=== PATIENT | male | born 1965 | race Caucasian/White ===

== ENCOUNTER 2016-09-28 10:03 | Observation (INO) ==
[2016-09-28] MEDS ORDERED: 0.9 % Sodium Chloride 500 ML IVC ONE (10:18)
[2016-09-28] MEDS: Nitroglycerin 0.4 MG TAB.SUBL SL ONE ×2 (10:29→10:35)
[2016-09-28 10:31] LABS: Basophils % 0.1 %; Eosinophils # 0.3 K/mcL (0.0-0.6); Eosinophils % 4.5 %; Hemoglobin 15.5 g/dL (12.9-16.9); Immature Granulocytes % 0.3 % (0-4); Lymphocytes # 1.7 K/mcL (0.6-4.6); Mean Corpuscular HGB Conc 34.4 g/dL (31.6-35.5); Mean Corpuscular Hemoglobin 30.6 pg (28.0-33.3); Mean Corpuscular Volume 88.8 fL (83.0-100.0); Mean Platelet Volume 9.6 fL (9.4-12.4); Monocytes # 0.5 K/mcL (0.0-1.3); Monocytes % 7.9 %; Neutrophils # 4.2 K/mcL (1.6-8.9); Platelet Count 213 K/mcL (140-400); Red Blood Count 5.07 M/mcL (4.19-5.50); Red Cell Distribution Width 13.9 % (11.5-14.5); Segmented Neutrophils % 62.2 %
--- NOTE | 2016-09-28 10:35 | Emergency Department Note ---
Disposition Clinical Impression: Chest pain Qualifiers: Ischemic chest pain type: unspecified angina pectoris type Disposition: Still a Patient Condition: Fair Referrals: NO,PCP [Primary Care Provider] - Forms: ED Satisfaction Letter Time of Disposition: 11:04 Chest Pain HPI - General Chief Complaint: ED Chest Pain Stated Complaint: Chest Pain Time Seen by Provider: 09/28/16 10:17 Source: patient Mode of arrival: ambulatory Limitations: no limitations Vital Signs Reviewed: Yes Nursing Notes Reviewed: Yes - History of Present Illness HPI Narrative: She presents to the emergency department with complaints of a 2 day chest pain. He states he seen the lawnmower came in and took 3 or 4 and then today when he awoke him he started experiencing chest pain again, took 4 aspirin at that time. He states that the pain has been persistent. Past medical history significant for the fact that he took himself off Suboxone 5 days ago because of the bad taste and was sleeping in his mouth. Was making him nauseous. States he is on Suboxone for 5 years for opiate addiction. States that he had a VT 17 years ago. At the age of 37. 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 At this time he is still complaining of chest pains that there is no diaphoresis no nausea. Pt complaint: chest pain Onset (ago): day(s) (2) Duration: intermittent, gradually worsening Onset: during rest, during exertion Pain Location: left chest Severity: severe Severity scale (1-10): 10 Quality: tightness, heaviness Pain Radiation: none Improves with: nothing Worsens with: nothing Treatments prior to arrival chest pain: aspirin (Patient states he had taken 4 baby asprin at home. ) - Related Data Home Medications Medication Instructions Recorded Confirmed Albuterol Neb [Proventil Neb] 2.5 mg IH Q4H PRN 09/28/16 09/28/16 Albuterol Sulfate [Albuterol 0 puff IH Q6HR 09/28/16 09/28/16 Inhaler] Amlodipine [Norvasc] 5 mg PO DAILY 09/28/16 09/28/16 Aspirin [Lo-Dose Aspirin EC] 81 mg PO DAILY 09/28/16 09/28/16 Atorvastatin Calcium [Lipitor] 20 mg PO DAILY 09/28/16 09/28/16 Budesonide/Formoterol 160/4.5 2 puff IH BIDR 09/28/16 09/28/16 [Symbicort 160/4.5] Buprenorphine HCl [Subutex] 4 mg SL HS 09/28/16 09/28/16 Buprenorphine HCl [Subutex] 8 mg SL BID 09/28/16 09/28/16 Ibuprofen [Motrin] 800 mg PO Q8HR 09/28/16 09/28/16 Allergies Allergy/AdvReac Type Severity Reaction Status Date / Time Penicillins Allergy Hives Verified 09/28/16 10:04 All systems ED: reviewed and negative except as stated. Constitutional: Denies: fever, chills, weakness, weight change Eyes: Denies: eye pain, eye discharge, vision change ENT ED: Denies: ear pain, throat pain, dental pain, hearing loss, epistaxis, congestion, dysphagia Cardiovascular: Reports: chest pain. Denies: palpitations, dyspnea on exertion , orthopnea, paroxysmal nocturnal dyspnea Respiratory: Denies: cough, dyspnea, wheezes, hemoptysis, stridor Gastrointestinal: Denies: abdominal pain, nausea, vomiting, diarrhea, constipation, hematemesis, melena, hematochezia Musculoskeletal: Denies: back pain, neck pain, arthralgia, myalgia Integumentary: Denies: rash, abrasion, lesions Neurological: Denies: headache, weakness, numbness, paresthesias, confusion, abnormal gait, vertigo Chest Pain PMH - Past Medical History Medical history: Reports: asthma, COPD, hyperlipidemia, hypertension Psychiatric history: Reports: no psych history - Social History Smoking Status: Former smoker Alcohol use: Reports: none Drug use: Reports: marijuana Physical Exam - General Limitations: no limitations General appearance: alert, in no apparent distress - Head Head exam: atraumatic, normocephalic, normal inspection - Eye Eye exam: Present: normal appearance, PERRL, EOMI - ENT ENT exam: normal exam, normal oropharynx, mucous membranes moist - Neck Neck exam: Present: normal inspection, full ROM, trachea midline - Chest Chest inspection: Present: normal inspection, symmetric chest wall rise - Respiratory Respiratory exam: Present: normal lung sounds bilaterally - Cardiovascular Cardiovascular exam: Present: regular rate, normal rhythm, normal heart sounds. Absent: systolic murmur, diastolic murmur, JVD - Abdominal Exam Abdominal exam: Present: soft, Non-Tender, normal bowel sounds. Absent: tenderness, distention, guarding, rebound, rigidity - Extremities Exam Extremities exam: Present: normal inspection, full ROM. Absent: tenderness, pedal edema - Back Exam Back exam: Present: normal inspection, full ROM. Absent: tenderness - Neurological Exam Neurological exam: Present: alert, oriented X3 - Psychiatric Psychiatric exam: Present: normal affect, normal mood - Skin Skin exam: Present: warm, dry, intact, normal color Course Vital Signs Temperature 98.1 F 09/28/16 10:04 Pulse Rate 92 09/28/16 10:04 Respiratory Rate 18 09/28/16 10:04 Blood Pressure 160/90 09/28/16 10:04 O2 Sat by Pulse Oximetry 96 09/28/16 10:04 Temperature 98.1 F 09/28/16 10:04 Pulse Rate 89 09/28/16 10:49 Respiratory Rate 16 09/28/16 10:49 Blood Pressure 126/81 09/28/16 10:49 O2 Sat by Pulse Oximetry 95 09/28/16 10:49 Oxygen Delivery Oxygen Delivery Room Air Chest Pain - Lab Data Result diagrams: 09/28/16 10:25 09/28/16 10:25 Lab Results 09/28/16 09/28/16 09/28/16 Range/Units 10:25 10:25 10:25 WBC 6.7 (4.3-11.1) K/mcL RBC 5.07 (4.19-5.50) M/mcL Hgb 15.5 (12.9-16.9) g/dL Hct 45.0 (37.5-50.1) % MCV 88.8 (83.0-100.0) fL MCH 30.6 (28.0-33.3) pg MCHC 34.4 (31.6-35.5) g/dL RDW 13.9 (11.5-14.5) % Plt Count 213 (140-400) K/mcL MPV 9.6 (9.4-12.4) fL Immature Gran % 0.3 (0-4) % Seg Neutrophils % 62.2 % Lymphocytes % 25.0 % Monocytes % 7.9 % Eosinophils % 4.5 % Basophils % 0.1 % Neutrophils # 4.2 (1.6-8.9) K/mcL Lymphocytes # 1.7 (0.6-4.6) K/mcL Monocytes # 0.5 (0.0-1.3) K/mcL Eosinophils # 0.3 (0.0-0.6) K/mcL Basophils # 0.0 (0.0-0.2) K/mcL PT 11.9 (9.4-12.1) Seconds INR 1.1 APTT 32.2 (26.0-36.0) Seconds Sodium 138 (136-145) mEq/L Potassium 4.1 (3.5-4.5) mEq/L Chloride 108 (98-109) mEq/L Carbon Dioxide 24 (19-29) mEq/L BUN 12 (8-26) mg/dL Creatinine 0.83 (0.72-1.25) mg/dL Est GFR ( Amer) > 60 (> 60) Est GFR (Non-Af Amer) > 60 (> 60) BUN/Creatinine Ratio 14 (6-26) Glucose 73 (70-99) mg/dL Calculated Osmolality 284 (280-300) Calcium 9.1 (8.6-10.8) mg/dL Troponin I (0-0.03) ng/mL 09/28/16 Range/Units 10:25 WBC (4.3-11.1) K/mcL RBC (4.19-5.50) M/mcL Hgb (12.9-16.9) g/dL Hct (37.5-50.1) % MCV (83.0-100.0) fL MCH (28.0-33.3) pg MCHC (31.6-35.5) g/dL RDW (11.5-14.5) % Plt Count (140-400) K/mcL MPV (9.4-12.4) fL Immature Gran % (0-4) % Seg Neutrophils % % Lymphocytes % % Monocytes % % Eosinophils % % Basophils % % Neutrophils # (1.6-8.9) K/mcL Lymphocytes # (0.6-4.6) K/mcL Monocytes # (0.0-1.3) K/mcL Eosinophils # (0.0-0.6) K/mcL Basophils # (0.0-0.2) K/mcL PT (9.4-12.1) Seconds INR APTT (26.0-36.0) Seconds Sodium (136-145) mEq/L Potassium (3.5-4.5) mEq/L Chloride (98-109) mEq/L Carbon Dioxide (19-29) mEq/L BUN (8-26) mg/dL Creatinine (0.72-1.25) mg/dL Est GFR ( Amer) (> 60) Est GFR (Non-Af Amer) (> 60) BUN/Creatinine Ratio (6-26) Glucose (70-99) mg/dL Calculated Osmolality (280-300) Calcium (8.6-10.8) mg/dL Troponin I 0.01 (0-0.03) ng/mL Heart Score - Score History: Moderately Suspicious EKG: Non Specific repolarisation Disturbance Age: 45-65 Risk Factors: Equal/Greater than 3 risk factor or history of atherosclerotic disease Troponin: Less than normal limit HEART Score Total: 5 S.B.A.R. - S.B.A.Radha Situation: Demographics Background: Presenting Complaint, Relevant PMH, Meds, & Allergies Assessment: Vital Signs, Course and respsone to treatment, Patient/Family Expectation, Pertinant Lab Results, Outstanding Labs Recommendation: Recommendation based on pending studies, treatments, or consults S.B.A.RAb Report Given to: Jorge Landers SAbB.AMoses Repor Time: 11:03
[2016-09-28 10:36] LABS: INR 1.1; Prothrombin Time 11.9 Seconds (9.4-12.1)
[2016-09-28 10:38] LABS: Activated Partial Thrombo Time 32.2 Seconds (26.0-36.0)
[2016-09-28 10:42] LABS: BUN/Creatinine Ratio 14 (6-26); Blood Urea Nitrogen 12 mg/dL (8-26); Calcium 9.1 mg/dL (8.6-10.8); Carbon Dioxide 24 mEq/L (19-29); Chloride 108 mEq/L (98-109); Glucose 73 mg/dL (70-99); Osmolality,Calculated 284 (280-300); Potassium 4.1 mEq/L (3.5-4.5); Sodium 138 mEq/L (136-145); eGFR For African Americans > 60 (> 60); eGFR For Non-African Americans > 60 (> 60)
[2016-09-28 11:02] LABS: Bilirubin,Urine Negative (Negative); Blood,Urine Negative (Negative); Clarity,Urine Clear (Clear); Color,Urine Yellow (Yellow); Glucose,Urine (UA) Normal (Normal); Ketones,Urine Negative (Negative); Leukocyte Esterase,Urine Negative (Negative); Nitrite,Urine Negative (Negative); PH,Urine 6.5 pH Units (5.0-8.0); Protein,Urine Negative (Neg-Trace); Specific Gravity,Urine 1.015 (1.010-1.025); Urobilinogen,Urine Normal (Normal)
[2016-09-28 11:03] LABS: Amphetamine Screen,Urine Negative ng/mL (Cutoff=1000); Barbiturate Screen,Urine Negative ng/mL (Cutoff=200); Benzodiazepines Screen,Urine Negative ng/mL (Cutoff=200); Cannabinoid Screen,Urine Positive ng/mL (Cutoff = 50); Cocaine Screen,Urine Negative ng/mL (Cutoff= 300); Opiate Screen,Urine Negative ng/mL (Cutoff=300); Phencyclidine Screen,Urine Negative ng/mL (Cutoff=25)
[2016-09-28] MEDS ORDERED: Aspirin 325 MG TABLET PO ONE (11:33)
[2016-09-28] MEDS ORDERED: *HR* Morphine 2 MG/ML SYRINGE IVP ONE (11:33)
[2016-09-28] MEDS ORDERED: Ondansetron 4 MG/2 ML VIAL IVP ONE (11:33)
--- NOTE | 2016-09-28 11:37 | Emergency Department Note ---
START Narrative - START START: I evaluated the patient with the APC, and spent direct [id number] time with the patient and agree with her findings assessment and plan. The patient has a history of hypertension, hypercholesterolemia, reported NC, and a strong family history of 90 artery disease. The patient is complaining of chest pain associated with exertion. His EKG is abnormal. Based on his risk factors and high heart score I thought it would be appropriate to admit the patient to the hospital. Pain medication was ordered as well as aspirin. The patient has not had a recent heart catheterization or stress test. The patient is currently stable. I discussed the case with the hospitalist on-call who has accepted the patient to his care. Impression: Chest pain Abnormal EKG History of coronary disease Family history of coronary disease History of hypertension History of hypercholesterolemia Marijuana abuse History of COPD Laboratory testing and chest x-ray reviewed.
--- NOTE | 2016-09-28 12:19 | Event Note ---
Date of Encounter: 09/28/16 Time of Encounter: 12:18 Patient seen and examined with nurse practitioner. Without acute coronary syndrome. There is no increasing cardio mediastinal silhouette. Continuous telemetry monitoring. Observation admission.
[2016-09-28] MEDS ORDERED: Naloxone 0.4 MG/ML INJ IVP PRN (12:35)
[2016-09-28] MEDS ORDERED: Acetaminophen 325 MG TABLET PO PRN (12:35)
[2016-09-28] MEDS ORDERED: Ondansetron 4 MG/2 ML VIAL IVP PRN (12:35)
[2016-09-28] MEDS ORDERED: Nitroglycerin 0.4 MG TAB.SUBL SL PRN (12:47)
--- NOTE | 2016-09-28 13:01 | Internal Med History&Physical ---
Date of Encounter: 09/28/16 Time of Encounter: 12:47 Assessment and Plan (1) Chest pain Status: Acute 1 patient's been experiencing chest pain for the past 3 days. Has a history of hypertension hyperlipidemia and smoking as well previous AR? - Psychiatry troponins are negative for continue to cycle cardiac troponins 2 nitroglycerin as needed for chest pain 3 oxygen as needed maintain SPO2 greater than 92% 4 continue his cardiac monitoring 5 cardiac echo 6 NPO after midnight-cardiac stress in a.m. 7 continue aspirin and statin 8 consult cardiology as needed 9 lipid level in am 10 we will obtain a d-dimer to rule out possible PE Qualifiers: Chest pain type: unspecified Qualified Code(s): R07.9 - Chest pain, unspecified Code(s): R07.9 - Chest pain, unspecified (2) HTN (hypertension) Status: Chronic 1 we will continue with home medications Colestid maintain systolic less than 140 2 low sodium diet Qualifiers: Hypertension type: essential hypertension Qualified Code(s): I10 - Essential (primary) hypertension (3) Hyperlipidemia Status: Chronic 1 continue with statin Qualifiers: Hyperlipidemia type: unspecified Qualified Code(s): E78.5 - Hyperlipidemia , unspecified (4) Tobacco abuse Status: Chronic 1 patient has history of tobacco use presently drapes approximately 6 mL's nicotine daily encouraged patient to stop offer patient nicotine patch declined (5) DVT prophylaxis Status: Acute lovenox (6) COPD (chronic obstructive pulmonary disease) Status: Chronic 1 we will continue bronchodilators 2 oxygen as needed Qualifiers: COPD type: emphysema Emphysema type: unspecified Qualified Code(s): J43.9 - Emphysema, unspecified Internal Medicine - H&P: HPI Chief complaint: CP Admitted From: Home Plans for Post Hospital Care: Home History of present illness: Mr. Harris is a 51 year old male past medical hx of HTN hyperlipidemia tobacco abuse, COPD past opiate abuse. Grandmother the patient he will call Sunday with left-sided chest pressure she rated 4 out of 10 radiating to his back shoulder and down his left arm. The pain was constant aspirin did relieve the pain somewhat as well as rest. Exertion aggravated pain. Patient has been experiencing nausea he normally takes Suboxone and has not been able take his medication due to the nausea. Denies any shortness of breath diaphoresis or lightheadedness. Yesterday patient was attempting to push lawnmower when the pain escalated to 10 out of 10, he states that he had to lie down in the grass for approximately 20 minutes into the pain subsided. This a.m. the pain has continued came into the ER for evaluation. Patient denies any fevers chills vomiting or palpitations . Patient states that he does have a past cardiac history,when he was approximately 37 he said he had an AR however did not have any stent placement. Patient states he has not used opioids since 2010 however he does admit to marijuana use. He does not smoke cigarettes however he does use vapor. According to ER records lab work was unremarkable with troponin was 0.01 chest x-ray with no acute process patient was given aspirin nitroglycerin morphine which did relieve his pain. EKG with no ST-T wave abnormalities. He has been admitted for further workup and evaluation. Presently patient complains of left-sided back pain which she rates 4 out of 10. Chest wall is nontender to palpation heart sounds are regular S1-S2 no rubs gallops murmurs or clicks noted. Lungs sounds are clear throughout. She is hemodynamically stable at this time I reviewed this case with Dr. Ramos who agrees with plan. Past Med Surg Social Fam HX - Past Medical History Medical history: asthma, COPD, hyperlipidemia, hypertension Psychiatric history: no psych history - Social History Smoking Status: Former smoker Smokeless Tobacco Status: No Alcohol use: none Drug use: marijuana - Family History Mother Living Status: Still Living Hx Family Cardiac Disorders: Yes (HTN) Hx Family Neurologic Disorders: Yes (stroke) Father Living Status: Still Living Hx Family Cardiac Disorders: Yes (HTN) Hx Family Neuromuscular Disorders: Yes (stroke) Internal Medicine - H&P: Meds Albuterol Neb [Proventil Neb] 2.5 mg IH Q4H PRN 09/28/16 [History] Albuterol Sulfate [Albuterol Inhaler] 0 puff IH Q6HR 09/28/16 [History] Amlodipine [Norvasc] 5 mg PO DAILY 09/28/16 [History] Aspirin [Lo-Dose Aspirin EC] 81 mg PO DAILY 09/28/16 [History] Atorvastatin Calcium [Lipitor] 20 mg PO DAILY 09/28/16 [History] Budesonide/Formoterol 160/4.5 [Symbicort 160/4.5] 2 puff IH BIDR 05/04/17 [ History] Buprenorphine HCl [Subutex] 4 mg SL HS 09/28/16 [History] Buprenorphine HCl [Subutex] 8 mg SL BID 09/28/16 [History] Ibuprofen [Motrin] 800 mg PO Q8HR 09/28/16 [History] Allergies Penicillins Allergy (Verified 09/28/16 10:04) Hives All Systems PM: A 10-system review of systems was performed and is negative for pertinent findings except as documented above in the HPI. - Cardiovascular Cardiovascular ROS IM: chest pain - Respiratory Respiratory: no cough, no dyspnea, no wheezing, no excessive phlegm production - Gastrointestinal Gastrointestinal: nausea - Musculoskeletal Musculoskeletal ROS IM: no numbness, no tingling - Integumentary Integumentary IM: no rash, no unusual bruising - Neurological Neurological ROS: no confusion, no convulsions, no focal weakness, no numbness, no tingling, no tremor(s) - Hematologic/Lymphatic Hematologic/Lymphatic: no easy bruising - Constitutional Vitals: Temp Pulse Resp BP Pulse Ox 98.1 F 86 16 138/102 97 09/28/16 10:04 09/28/16 11:42 09/28/16 12:01 09/28/16 12:01 09/28/16 11:42 General appearance: Present: A&O X 3, answers questions appropriately - Head Head exam: Present: atraumatic, normocephalic - Eye Eye exam: Present: PERRL, conjuntiva pink, sclera anicteric Pupils: Present: PERRL - Neck Neck exam general surgery: Present: supple, trachea midline. Absent: lymphadenopathy - Respiratory Respiratory exam: Present: CTAB. Absent: accessory muscle use, rales, rhonchi, wheezes - Cardiovascular Cardiovascular exam: Present: RRR, +S1, +S2. Absent: diastolic murmur, gallop, rubs, systolic murmur - GI/Abdominal GI/Abdominal exam: Present: normal bowel sounds, soft, no peritoneal signs. Absent: distended, tenderness - Extremities Exam Extremities exam: Present: warm, radial pulses palpable and symetrical. Absent : calf tenderness, cyanotic, pedal edema - Neurological Exam Neurological exam: Present: CN II-XII intact, oriented X3, no focal deficits. Absent: pronater drift, facial droop, speech deficit - Skin Skin exam: Present: dry, intact Internal Med - H&P Results - Labs CBC & Chem 7: 09/28/16 10:25 09/28/16 10:25 - EKG Data EKG shows normal: sinus rhythm - EKG Data Prior EKG available for review: yes When compared to previous EKG: there is no significant change - Diagnostic Studies Chest x-ray Additional comments: Chest X-Ray 09/28/16 10:18 IMPRESSION: No acute cardiopulmonary process. D/ / 09/28/2016 11:02:37 Hu Dawson MD / carly Interpreting Provider: Hu Dawson MD
[2016-09-28] MEDS ORDERED: Albuterol 2.5 MG/3 ML NEBULIZER IH PRN (13:12)
--- NOTE | 2016-09-28 14:46 | Electrocardiograph Report ---
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
[2016-09-28 15:27] VITALS: BP 140/89
[2016-09-28] MEDS ORDERED: *HR* Buprenorphine HCl 8 MG TAB.SUBL SL SCH ×2 (16:00→21:00)
[2016-09-28] MEDS ORDERED: Ibuprofen 800 MG TABLET PO SCH (16:00)
[2016-09-28] MEDS ORDERED: Ketorolac 30 MG/ML VIAL IVP ONE (16:18)
--- NOTE | 2016-09-28 21:02 | Event Note ---
Date of Encounter: 09/28/16 Time of Encounter: 16:00 Call to patient's room per nursing staff patient requested to leave AMA. Discussed with patient concerning why he wanted to leave. He states that he feels that we are not doing anything for him here that he spoke with his daughter he states he should have went straight to the catheter lab. Explained to the patient that there are certain criteria for patient in the. His EKG did not indicate any ST changes as well as has negative troponins. Informed him that he is to receive a cardiac echo as well as training troponins and a stress test in the a.m. He states that edema has been out for him because he has complained much in the past and that he is not getting adequate care. Explained to the patient this was not the case and asked to continue to improve his stay. Patient states he was having chest pain informed him that he had a triglyceride ordered for chest pain and if need be he can have morphine as well. Patient declined states he wants to go home informed the risk and benefits of signing out AMA including possibly . Patient states he will carry at least I will at home. Asked patient to speak with my attending he stated he would. Informed Dr. Ramos who did speak with patient at bedside.
[2016-09-28] MEDS ORDERED: Budesonide/Formoterol 160/4.5 MDI IH SCH (22:00)
[2016-09-29] MEDS ORDERED: *HR* Enoxaparin 40 MG/0.4 ML SYRINGE SQ SCH (07:00)
[2016-09-29] MEDS ORDERED: Aspirin Enteric Coated 81 MG Tablet PO SCH (09:00)
[2016-09-29] MEDS ORDERED: amLODIPine 5 MG TABLET PO SCH (09:00)
== END 2016-09-28 16:35 | disposition left against medical advice (07) ==
LOC: 3BNU 10:03 → EMEROO 10:03 → 3BNU 12:30
PROVIDERS: ADMIT Nurse Practitioner Acute Care; ATTEND Nurse Practitioner Family

== ENCOUNTER 2018-04-09 00:17 | Inpatient (IN) ==
[2018-04-09] MEDS ORDERED: *HR* Ticagrelor 90 MG TABLET PO ONE (00:25)
[2018-04-09] MEDS ORDERED: *HR* Heparin 5,000 UNIT/ML VIAL IVP ONE (00:25)
[2018-04-09] MEDS ORDERED: *HR* Heparin 5,000 UNIT/ML VIAL IVP PRN ×2 (00:25)
[2018-04-09] MEDS ORDERED: Aspirin 81 MG TAB.CHEW PO ONE (00:25)
[2018-04-09] MEDS ORDERED: Nitroglycerin 25 MG/250 ML INFUS..BTL IVC SCH (00:30)
[2018-04-09] MEDS ORDERED: Heparin 25,000 UNIT/500 ML D5W 25,000 UNIT/500 ML BAG IVC SCH ×2 (00:30→02:00)
--- NOTE | 2018-04-09 00:31 | Emergency Department Note ---
Disposition Clinical Impression: STEMI (ST elevation myocardial infarction), Chest pain Disposition: Admitted As Inpatient Condition: Fair Chest Pain HPI - General Chief Complaint: ED Chest Pain Stated Complaint: chest pain Time Seen by Provider: 04/09/18 00:25 Source: patient, EMS Limitations: no limitations - History of Present Illness Severity scale (1-10): 8 - Related Data Home Medications Medication Instructions Recorded Confirmed Albuterol Neb [Proventil Neb] 2.5 mg IH Q4H PRN 09/28/16 09/28/16 Albuterol Sulfate [Albuterol 0 puff IH Q6HR 09/28/16 09/28/16 Inhaler] Aspirin [Lo-Dose Aspirin EC] 81 mg PO DAILY 09/28/16 09/28/16 Atorvastatin Calcium [Lipitor] 20 mg PO DAILY 09/28/16 09/28/16 Budesonide/Formoterol 160/4.5 2 puff IH BIDR 09/28/16 09/28/16 [Symbicort 160/4.5] Buprenorphine HCl [Subutex] 4 mg SL HS 09/28/16 09/28/16 Buprenorphine HCl [Subutex] 8 mg SL BID 09/28/16 09/28/16 Ibuprofen [Motrin] 800 mg PO Q8HR 09/28/16 09/28/16 amLODIPine [Norvasc] 5 mg PO DAILY 09/28/16 09/28/16 Allergies Allergy/AdvReac Type Severity Reaction Status Date / Time Penicillins Allergy Hives Verified 09/28/16 10:04 Chest Pain PMH - Past Medical History Medical history: Reports: asthma, COPD, hyperlipidemia, hypertension Surgical history: Reports: orthopedic, other Psychiatric history: Reports: no psych history - Social History Smoking Status: Current every day smoker Alcohol use: Reports: none Drug use: Reports: marijuana Physical Exam - General Limitations: no limitations General appearance: alert, in no apparent distress Course Vital Signs Temperature 97.7 F 04/09/18 00:19 Pulse Rate 65 04/09/18 00:19 Respiratory Rate 14 04/09/18 00:19 Blood Pressure 156/100 04/09/18 00:19 O2 Sat by Pulse Oximetry 100 04/09/18 00:19 Temperature 97.6 F 04/09/18 04:11 Pulse Rate 85 04/09/18 04:30 Respiratory Rate 18 04/09/18 04:30 Blood Pressure 116/75 04/09/18 04:30 O2 Sat by Pulse Oximetry 96 04/09/18 04:30 Oxygen Delivery Oxygen Delivery Room Air Chest Pain - MDM Narrative Medical decision making narrative: STEMI ALERT CALLED ON ARRIVAL. TYPICAL CHEST PAIN SYMPTOMS, INFERIOR WALL STEMI. ASA, HEPARIN. - Lab Data Result diagrams: 04/09/18 03:29 04/09/18 03:29 Lab Results 04/09/18 04/09/18 04/09/18 Range/Units 00:25 00:25 00:25 WBC 13.7 H (4.3-11.1) K/mcL RBC 5.14 (4.19-5.50) M/mcL Hgb 16.0 (12.9-16.9) g/dL Hct 46.3 (37.5-50.1) % MCV 90.1 (83.0-100.0) fL MCH 31.1 (28.0-33.3) pg MCHC 34.6 (31.6-35.5) g/dL RDW 14.3 (11.5-14.5) % Plt Count 230 (140-400) K/mcL MPV 9.6 (9.4-12.4) fL Immature Gran % 0.4 (0-4) % Seg Neutrophils % 68.7 % Lymphocytes % 22.7 % Monocytes % 6.3 % Eosinophils % 1.8 % Basophils % 0.1 % Neutrophils # 9.4 H (1.6-8.9) K/mcL Lymphocytes # 3.1 (0.6-4.6) K/mcL Monocytes # 0.9 (0.0-1.3) K/mcL Eosinophils # 0.3 (0.0-0.6) K/mcL Basophils # 0.0 (0.0-0.2) K/mcL PT 11.1 (9.4-12.1) Seconds INR 1.0 APTT 34.4 (26.0-36.0) Seconds Sodium 139 (136-145) mEq/L Potassium 3.9 (3.5-5.1) mEq/L Chloride 107 (98-107) mEq/L Carbon Dioxide 26 (23-29) mEq/L BUN 12 (6-20) mg/dL Creatinine 1.00 (0.70-1.30) mg/dL Est GFR ( Amer) > 60 (> 60) Est GFR (Non-Af Amer) > 60 (> 60) BUN/Creatinine Ratio 12 (6-26) Glucose 70 (70-105) mg/dL Calculated Osmolality 286 (280-300) Calcium 9.1 (8.6-10.3) mg/dL Magnesium 2.1 (1.6-2.6) mg/dL Troponin I 0.04 H* (< 0.04) ng/mL Attestation Statement - Attestation Attestation: I examined this patient and my medical decision-making was reviewed with the Resident Physician. I agree with the documented findings, disposition and treatment plan as described except to the extent set forth below. STEMI alert called on arrival, suspect posterior infarct, (, heparin, aspirin, admission to cardiac catheter lab. Discussed case with Dr. Mosqueda. 35 minutes critical care time
--- NOTE | 2018-04-09 00:32 | Emergency Department Note ---
Disposition Clinical Impression: STEMI (ST elevation myocardial infarction) Qualifiers: Involved coronary artery: unspecified coronary artery Qualified Code(s): I21.3 - ST elevation (STEMI) myocardial infarction of unspecified site Chest pain Qualifiers: Chest pain type: unspecified Qualified Code(s): R07.9 - Chest pain, unspecified Disposition: Admitted As Inpatient Condition: Fair Forms: ED Satisfaction Letter Time of Disposition: 00:40 Chest Pain HPI - General Chief Complaint: ED Chest Pain Stated Complaint: chest pain Time Seen by Provider: 04/09/18 00:25 Source: patient, EMS Mode of arrival: EMS Limitations: no limitations Vital Signs Reviewed: Yes Nursing Notes Reviewed: Yes - History of Present Illness HPI Narrative: 52 old male with history of hypertension and known coronary artery disease with no stents presents for evaluation of chest pain. Patient notes intermittent chest pain over the past week. Patient noted that the pain got significantly worse this evening. Notes left sided chest pressure with radiation to his left jaw and left shoulder. Reports nausea but no vomiting. Also notes diaphoresis. No shortness of breath. Patient presented via EMS. Patient did receive aspirin earlier today. No other interventions prehospital. No history of DVT or PE. No history of active cancer. Severity scale (1-10): 10 - Related Data Home Medications Medication Instructions Recorded Confirmed Albuterol Neb [Proventil Neb] 2.5 mg IH Q4H PRN 09/28/16 09/28/16 Albuterol Sulfate [Albuterol 0 puff IH Q6HR 09/28/16 09/28/16 Inhaler] Aspirin [Lo-Dose Aspirin EC] 81 mg PO DAILY 09/28/16 09/28/16 Atorvastatin Calcium [Lipitor] 20 mg PO DAILY 09/28/16 09/28/16 Budesonide/Formoterol 160/4.5 2 puff IH BIDR 09/28/16 09/28/16 [Symbicort 160/4.5] Buprenorphine HCl [Subutex] 4 mg SL HS 09/28/16 09/28/16 Buprenorphine HCl [Subutex] 8 mg SL BID 09/28/16 09/28/16 Ibuprofen [Motrin] 800 mg PO Q8HR 09/28/16 09/28/16 amLODIPine [Norvasc] 5 mg PO DAILY 09/28/16 09/28/16 Allergies Allergy/AdvReac Type Severity Reaction Status Date / Time Penicillins Allergy Hives Verified 09/28/16 10:04 All systems ED: reviewed and negative except as stated. Cardiovascular: Reports: chest pain Respiratory: Denies: cough, dyspnea Gastrointestinal: Reports: nausea. Denies: abdominal pain, vomiting Chest Pain PMH - Past Medical History Medical history: Reports: asthma, COPD, hyperlipidemia, hypertension Surgical history: Reports: orthopedic, other Psychiatric history: Reports: no psych history - Social History Smoking Status: Current every day smoker Alcohol use: Reports: none Drug use: Reports: marijuana Physical Exam - General Limitations: no limitations General appearance: alert, other (In distress) - Head Head exam: atraumatic, normocephalic, normal inspection - Eye Eye exam: Present: normal appearance, PERRL, EOMI - ENT ENT exam: normal exam, normal oropharynx, mucous membranes moist - Neck Neck exam: Present: normal inspection - Chest Chest inspection: Present: normal inspection, symmetric chest wall rise - Respiratory Respiratory exam: Present: normal lung sounds bilaterally. Absent: respiratory distress - Cardiovascular Cardiovascular exam: Present: regular rate, normal rhythm. Absent: systolic murmur Course - Reevaluation(s) Reevaluation #1: Patient's posterior EKG does not show any ST elevation in aVR. Time: 00:38 - Consultations Consultation #1: Discussed with Dr. Mosqueda Cardiology who is aware of the patient. Time: 00:32 Vital Signs Temperature 97.7 F 04/09/18 00:19 Pulse Rate 65 04/09/18 00:19 Respiratory Rate 14 04/09/18 00:19 Blood Pressure 156/100 04/09/18 00:19 O2 Sat by Pulse Oximetry 100 04/09/18 00:19 Temperature 97.7 F 04/09/18 00:19 Pulse Rate 89 04/09/18 00:36 Respiratory Rate 20 04/09/18 00:36 Blood Pressure 165/113 04/09/18 00:36 O2 Sat by Pulse Oximetry 100 04/09/18 00:36 Oxygen Delivery Oxygen Delivery Room Air Chest Pain - MDM Narrative Medical decision making narrative: Patient presented for concerns of unstable angina. Patient does have risk factors and does have known coronary artery disease. STEMI alert was called upon arrival to the ED. Consulted with the interventional list who is aware the patient. Also sent the EKGs down to the [employer] via fax. Patient was given the STEMI protocol. Given aspirin Brilinta nitro drip as well as a bolus of heparin. Patient history is not consistent with a PE or dissection. - Lab Data Lab results reviewed: Yes I reviewed the patient's lab results. Result diagrams: 04/09/18 00:25 Lab Results 04/09/18 Range/Units 00:25 WBC 13.7 H (4.3-11.1) K/mcL RBC 5.14 (4.19-5.50) M/mcL Hgb 16.0 (12.9-16.9) g/dL Hct 46.3 (37.5-50.1) % MCV 90.1 (83.0-100.0) fL MCH 31.1 (28.0-33.3) pg MCHC 34.6 (31.6-35.5) g/dL RDW 14.3 (11.5-14.5) % Plt Count 230 (140-400) K/mcL MPV 9.6 (9.4-12.4) fL Immature Gran % 0.4 (0-4) % Seg Neutrophils % 68.7 % Lymphocytes % 22.7 % Monocytes % 6.3 % Eosinophils % 1.8 % Basophils % 0.1 % Neutrophils # 9.4 H (1.6-8.9) K/mcL Lymphocytes # 3.1 (0.6-4.6) K/mcL Monocytes # 0.9 (0.0-1.3) K/mcL Eosinophils # 0.3 (0.0-0.6) K/mcL Basophils # 0.0 (0.0-0.2) K/mcL - EKG Data EKG attestation: Yes I reviewed and interpreted this EKG. EKG shows normal: sinus rhythm Rate: normal Rhythm: NSR [place]/QRS: normal ST segment elevation in: II, III, aVF ST segment depression in: v1, v2, v3 When compared to previous EKG there are: changes noted Interpretation: acute MT
[2018-04-09 00:35] LABS: Basophils % 0.1 %; Eosinophils # 0.3 K/mcL (0.0-0.6); Eosinophils % 1.8 %; Hematocrit 46.3 % (37.5-50.1); Immature Granulocytes % 0.4 % (0-4); Lymphocytes # 3.1 K/mcL (0.6-4.6); Lymphocytes % 22.7 %; Mean Corpuscular HGB Conc 34.6 g/dL (31.6-35.5); Mean Corpuscular Hemoglobin 31.1 pg (28.0-33.3); Mean Corpuscular Volume 90.1 fL (83.0-100.0); Mean Platelet Volume 9.6 fL (9.4-12.4); Monocytes # 0.9 K/mcL (0.0-1.3); Monocytes % 6.3 %; Neutrophils # 9.4 K/mcL (1.6-8.9); Platelet Count 230 K/mcL (140-400); Red Blood Count 5.14 M/mcL (4.19-5.50); Red Cell Distribution Width 14.3 % (11.5-14.5); Segmented Neutrophils % 68.7 %
[2018-04-09] MEDS ORDERED: 0.9 % Sodium Chloride 1,000 ML ONE ×2 (00:36→00:55)
[2018-04-09 00:42] LABS: Prothrombin Time 11.1 Seconds (9.4-12.1)
[2018-04-09 00:45] LABS: Activated Partial Thrombo Time 34.4 Seconds (26.0-36.0)
[2018-04-09] MEDS ORDERED: Ondansetron 4 MG/2 ML VIAL IVP ONE (00:54)
[2018-04-09] MEDS ORDERED: *HR* Midazolam HCl 2 MG/2 ML VIAL ONE ×2 (00:54→01:27)
[2018-04-09] MEDS ORDERED: Verapamil 5 MG/2 ML VIAL ONE (00:54)
[2018-04-09] MEDS ORDERED: *HR* FentaNYL (PF) 100 MCG/2 ML VIAL ONE (00:54)
[2018-04-09] MEDS ORDERED: ISOVUE-370 200 ML INFUS..BTL ONE (00:55)
[2018-04-09] MEDS ORDERED: Heparin 1,000 UNITS/500 mL 500 ML ONE (00:55)
[2018-04-09] MEDS ORDERED: Nitroglycerin 1,000 MCG/10 ML VIAL IV ONE (00:55)
[2018-04-09] MEDS ORDERED: *HR* Heparin 10,000 UNIT/10 ML VIAL ONE (00:55)
[2018-04-09 00:58] LABS: BUN/Creatinine Ratio 12 (6-26); Blood Urea Nitrogen 12 mg/dL (6-20); Calcium 9.1 mg/dL (8.6-10.3); Carbon Dioxide 26 mEq/L (23-29); Chloride 107 mEq/L (98-107); Glucose 70 mg/dL (70-105); Magnesium 2.1 mg/dL (1.6-2.6); Osmolality,Calculated 286 (280-300); Potassium 3.9 mEq/L (3.5-5.1); Sodium 139 mEq/L (136-145); eGFR For Non-African Americans > 60 (> 60)
--- NOTE | 2018-04-09 01:04 | Pre-Sedation Evaluation ---
Pre-sedation evaluation - Pre-sedation checklist Date of procedure: 04/09/18 Procedure: [facility] Recent Vitals: Last Vital Signs Temp 97.7 F 04/09/18 00:19 Pulse 75 04/09/18 00:53 Resp 16 04/09/18 00:53 BP 133/95 04/09/18 00:53 Pulse Ox 98 04/09/18 00:53 H&P (including ROS) documented in medical record: Yes Dietary Status: unknown Airway Assessment: Patient can open mouth completely, TMJ function normal ASA Classification *see protocol: CLASS IV-Severe systemic disease/constant threat to pt's life Plan of Care: Pt appropriate candidate for procedure/moderate/conscious sedation, Risks/benefits of procedure/sedation discussed w/ patient/family Cardiac Registry (Cardio Only) - Functional Capacity Functional Capacity: >=4 METS with symptoms - Clincal Frailty Scale Clinical Frailty Scale: Managing Well
[2018-04-09] MEDS ORDERED: Nitroglycerin 0.4 MG TAB.SUBL SL PRN (01:08)
[2018-04-09] MEDS ORDERED: *HR* Morphine 2 MG/ML SYRINGE IVP PRN (01:08)
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
[2018-04-09] MEDS ORDERED: Albuterol 2.5 MG/3 ML NEBULIZER IH PRN (01:12)
[2018-04-09] MEDS ORDERED: Tirofiban 12.5 MG/250ML 12.5 MG/250 ML BAG IVC SCH (01:15)
[2018-04-09 01:16] LABS: Troponin I 0.04 ng/mL (< 0.04)
[2018-04-09] MEDS ORDERED: Tirofiban 12.5 MG/250ML 12.5 MG/250 ML BAG ONE (01:21)
[2018-04-09] MEDS ORDERED: *HR* LORazepam 2 MG/ML VIAL IVP PRN (02:04)
--- NOTE | 2018-04-09 02:27 | Invasive Diagnostic Lab Proc ---
Name: Albert Harris Date of Study: 04/09/2018 Date: 1965 Ht: 70.9in Medical Record#: [id number] Age: 52 Wt: 184.97lb Gender: Male BSA: 2.04 Order #: [id number] BMI: 25.9 Physicians Procedure Physician: John Mosqueda MD, [facility] Referring MD: Referring MD: Staff Name Position Time In SamirCandy RN Monitor 01:26 AM Nida Baltazar RN Transcription 01:26 AM Laina Mckenzie RT (R) Scrub 01:26 AM Indications Indication STEMI Procedures Performed Procedure L HRT ARTERY/VENTRICLE ANGIO PRQ CARD REVASC FL 1 VSL Pre-Procedure Checklist Informed consent is complete signed and on chart. H&P is on chart. ID band is on and ID verified with patient. Patient NPO for procedure The procedure was described for the patient and questions were answered. Blood Pressure: 133/95 ECG is on chart. Rhythm: SR w/ st elevation Plan of Care Patient will tolerate the procedure without complications. Adequate level of comfort will be maintained. Hemodynamics will remain stable Patient will recover from procedure without complications. Respiratory function will be maintained. Cardiac rhythm will remain stable. Patient temperature will be maintained. Patient and/or family have verbalized understanding of the procedure. Patient Education Chief Complaint/Reason for Test: Cardiac Cath Developmental Category: Adult (18-64 years) Developmentally Appropriate for Age: Yes Learning Barriers: None Education Needs: Procedure Education Method: Verbal Information Taught: Cardiac Cath Educational Evaluation: Able to repeat information Intravenous Access Time IV Size Location DC'd Fluid/Drip Rate Units RN 01:05 AM 18g 1 1/4" Patent On Arrival Rt Antecubital 01:05 AM 20g 1 1/4" Patent On Arrival Lt Antecubital 0.9NaCl 25 ml/hr Nida Baltazar RN Allergies Penicillin Propoxyphene Acetaminophen DEMEROL,MORPHIN DILAUDID,PCN TALWIN PCN Penicillins Vital Signs Time BP (mmHg) HR (bpm) O2 Sat. RR (bpm) LOC 01:06 AM 133 / 95 75 98 % 16 5 = Fully awake and oriented or at pre-proc level 01:23 AM / % 5 = Fully awake and oriented or at pre-proc level 01:23 AM / % 4 = Oriented but drowsy 01:38 AM / % 4 = Oriented but drowsy 01:54 AM / % 4 = Oriented but drowsy 01:24 AM 131 / 94 85 97 % 27 01:29 AM 127 / 89 85 95 % 26 01:34 AM 131 / 92 89 94 % 32 01:39 AM 93 / 59 91 97 % 10 01:41 AM 105 / 58 85 98 % 17 01:42 AM 102 / 64 90 95 % 10 01:44 AM 109 / 69 70 96 % 9 01:45 AM 105 / 69 90 89 % 6 01:49 AM 112 / 65 87 95 % 16 01:54 AM 109 / 60 91 96 % 10 01:59 AM 107 / 69 % Procedural Medications Time Medication Dose Units Method Given By 01:23 AM Oxygen 2 L/min nasal cannula Nida Baltazar RN 01:23 AM Versed 2 mg Intravenous Nida Baltazar RN 01:23 AM Fentanyl 25 mcg Intravenous Nida Baltazar RN 01:27 AM Lidocaine 2% 0.5 ml Subcutaneous John Mosqueda MD, FACC 01:28 AM Heparin 2000 units Nitroglycerin 200 mcg Verapamil 2.5 mg Intraarterial John Mosqueda MD, FACC 01:28 AM Versed 1 mg Intravenous Nida Baltazar RN 01:28 AM Fentanyl 25 mcg Intravenous Nida Baltazar RN 01:39 AM Atropine 0.5 amp Intravenous Nida Baltazar RN 01:39 AM Aggrastat Bolus: 42 ml Intravenous Nida Baltazar RN 01:40 AM Aggrastat 12.5mg/250ml 15 ml/hr Intravenous Nida Baltazar RN 01:42 AM Versed 1 mg Intravenous Nida Baltazar RN 01:42 AM Fentanyl 25 mcg Intravenous Nida Baltazar RN 01:44 AM Benadryl 50 mg Intravenous Nida Baltazar RN 01:19 AM Nitroglycerin 10 mcg/min Intravenous ASA Classification: CLASS II- Mild systemic disease (i.e. well-controlled diabetes, hypertension, asthma, cigarette smoking) Emergent Procedure: ASA score is assumed Aston Score Preprocedure Postprocedure Activity 2- Moves 4 extremities sustained head lift Activity 2- Moves 4 extremities sustained head lift Circulation 2- SBP +/= 20 points of pre-anesthetic level Circulation 2- SBP +/= 20 points of pre-anesthetic level Consciousness 2- Awake and alert oriented x 3 Consciousness 2- Awake and alert oriented x 3 O2 Saturation 2- Able to maintain O2 satruation of 92% on room air O2 Saturation 2- Able to maintain O2 satruation of 92% on room air Respiratory 2- Able to deep breathe and cough well Respiratory 2- Able to deep breathe and cough well Total Score 10 Total Score 10 Contrast Agent: Isovue Diagnostic Contrast: 100 ml Total Contrast: 100 ml Fluoro Dose: 4128 mGy Procedure Log Time Note Enter By 01:19 AM Patient arrived at :19 with Nitroglycerin Intravenous drip @ 10 mcg/min [facility] : AM CathStat :22 AM Pt arrived to veterinary laboratory technician 2 at 01:16 [facility] : AM Physician arrived : [facility] AM ASA Class CLASS II- Mild systemic disease (i.e. well-controlled diabetes, hypertension, asthma, cigarette smoking) [facility] AM Meet and greet completed [facility] AM Procedure start :cool AM Time: : Oxygen on at 2 L/min per nasal cannula by Nida Baltazar RN [facility] AM Time: LOC: 5 = Fully awake and oriented or at pre-proc level [facility] AM Complaint: Pain; Pain Score: 8 (1-10); Pain Location: Chest; Relief Measure: MD Aware no orders given, pt on nitro gtt, will complete LHC; Response: . [facility] AM Vitals capture started with the following parameters, Patient=Adult, Interval=5 min, Initial Vzsfmezh=052 mmHg, Deflation Rate=5 mmHg, Cuff placed on Right Arm AM Time: Versed 2 mg Intravenous Given by Nida Baltazar RN [facility] AM Time: : Fentanyl 25 mcg Intravenous Given by Nida Baltazar RN [facility] AM HR=85 bpm, TNIG=398/94 mmhg, SpO2=97.0 %, Resp=27 B/min, EtCO2=30 mmHg, Comment=sr : AM Time out was performed according to hospital policy. Conscious sedation and anesthesia was achieved (see medication log with in this report above) [facility] AM Pressure channel 1 zeroed. : AM Candy Dawson RN Position: Monitor Time in: :avis AM Patient charges- Angio tray pack, Navilyst 3mm J, Pulse Oximetry and ACIST tubing and transducer avis : AM Hair removed from procedure site in procedure lab using clippers. Right wrist and rt groin prepped with Chloraprep by Candy Dawson RN , then patient was draped. Skin intact. 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 AM Time: 0.5 ml Lidocaine 2% to right radial Subcutaneous Given by John Mosqueda MD, FAC avis AM Recorded ECG: HR=95 Condition=Condition 1 AM Access obtained by percutaneous puncture. 6Fr 11cm Terumo Glidesheath sheath placed in right Radial artery. [id number] avis : AM Recorded Pressure: Ao, HR=88, Condition=Condition 1 (Aorta) Ao 104/81/92 : AM Time: Patient given 2,000 units Heparin, 200 mcg Nitroglycerin, and 2.5 mg Verapamil Intraarterial by John Mosqueda MD, [facility]. This is given to reduce risk of vessel spasm and thrombosis. avis AM Time: Versed 1 mg Intravenous Given by Nida Baltazar RN s AM Time: Fentanyl 25 mcg Intravenous Given by Nida Baltazar RN avis : AM HR=85 bpm, FIRB=798/89 mmhg, SpO2=95.0 %, Resp=26 B/min, Comment=sr : AM 5Fr TIG catheter inserted over the wire C avis : AM RCA angiography performed in multiple views. avis : AM catheter repositioned to the LCA kmavis AM LCA angiography performed in multiple views. kmavis : AM Catheter removed avis AM 6Fr RBR 3.5 Convey guide catheter was used to cannulate the PCI vessel successfully. reused? No kmavis 01:32 AM Recorded Pressure: Ao, HR=90, Condition=Condition 1 (Aorta) Ao 111/78/94 01:34 AM HR=89 bpm, JPJJ=962/92 mmhg, SpO2=94.0 %, Resp=32 B/min, EtCO2=23 mmHg, Comment=sr 01:34 AM Lesion found in Mid RCA. Pre Stenosis: 100 Pre ARMANDO Flow: 0: No Flow/No perfusion kmavis 01:35 AM Lesion found in Proximal Circumflex. Pre Stenosis: 70 Pre ARMANDO Flow: kmavis 01:35 AM Recorded Pressure: Ao, HR=90, Condition=Condition 1 (Aorta) Ao 111/77/94 01:35 AM Lesion found in Mid LAD. Pre Stenosis: 85 Pre ARMANDO Flow: kmavis 01:35 AM Coronary Dominance: right kmavis 01:35 AM .014 Olpe 190cm guide wire across target lesion- successful. reused? No kmavis 01:35 AM 2.0 mm x 15 mm Mozec balloon across target lesion- successful. reused? No kmavis 01:36 AM Balloon inflated @ 16 edward for 20 seconds kmavis 01:37 AM Balloon inflated @ 16 edward for 12 seconds kmavis 01:38 AM NIBP STAT measurement started. 01:38 AM Time: 01:23LOC: 4 = Oriented but drowsy kmavis 01:38 AM Time: 01:23 Patient comfortable and pain free: Yes kmavis 01:39 AM HR=91 bpm, NIBP=93/59 mmhg, SpO2=97.0 %, Resp=10 B/min, Comment=sr 01:39 AM Recorded Pressure: Ao, HR=88, Condition=Condition 1 (Aorta) Ao 71/53/62 01:39 AM Time: 01:39 Atropine 0.5 amp Intravenous Given by Nida Baltazar RN kmavis 01:39 AM Balloon inflated @ 16 edward for 20 seconds kmavis 01:39 AM Recorded Pressure: Ao, HR=86, Condition=Condition 1 (Aorta) Ao 74/-1/27 01:40 AM NIBP STAT measurement started. 01:40 AM Time: 01:39 Aggrastat Bolus: 42 ml Intravenous Given by Nida Baltazar RN Martinez pump kmavis 01:40 AM Time: 01:40 Aggrastat 12.5mg/250ml 15 ml/hr Intravenous Given by Nida Baltazar RN Martinez pump kmavis 01:40 AM pt experiencing reperfussion rhythms and chest pain 03/06 kmavis 01:40 AM Balloon inflated @ 16 edward for 20 seconds kmavis 01:41 AM HR=85 bpm, LMKV=087/58 mmhg, SpO2=98.0 %, Resp=17 B/min, Comment=sr 01:41 AM Balloon catheter removed intact. kmavis 01:42 AM NIBP STAT measurement started. 01:42 AM Time: 01:42 Versed 1 mg Intravenous Given by Nida Baltazar RN kmavis :42 AM Time: 01:42 Fentanyl 25 mcg Intravenous Given by Nida Baltazar RN kmavis :42 AM HR=90 bpm, QCDL=653/64 mmhg, SpO2=95.0 %, Resp=10 B/min, Comment=sr 01:42 AM 2.5 mm x 17 mm Mozec balloon across target lesion- successful. reused? No avis 01:44 AM Time: 01:44 Benadryl 50 mg Intravenous Given by Nida Baltazar RN avis 01:44 AM HR=70 bpm, UNKU=396/69 mmhg, SpO2=96.0 %, Resp=9 B/min, Comment=sr 01:44 AM Balloon inflated @ 7 edward for 7 seconds kmavis 01:44 AM NIBP STAT measurement started. 01:44 AM Pressure channel 1 zeroed. 01:44 AM Balloon inflated @ 16 edward for 16 seconds kmavis 01:45 AM Recorded Pressure: Ao, HR=92, Condition=Condition 1 (Aorta) Ao 87/70/79 01:45 AM HR=90 bpm, AGQK=934/69 mmhg, SpO2=89.0 %, Resp=6 B/min, Comment=sr 01:46 AM Recorded Pressure: Ao, HR=95, Condition=Condition 1 (Aorta) Ao 100/80/90 01:47 AM physician reviewing films kmavis 01:49 AM HR=87 bpm, RNUH=974/65 mmhg, SpO2=95.0 %, Resp=16 B/min, Comment=sr 01:49 AM Balloon inflated @ 16 edward for 23 seconds kmavis 01:49 AM Recorded Pressure: Ao, HR=87, Condition=Condition 1 (Aorta) Ao 97/70/82 01:51 AM Cutting balloon catheter removed intact. kmavis 01:51 AM Guide catheter removed intact. kmavis 01:52 AM Guide wire removed intact. kmavis 01:52 AM 5Fr Pigtail catheter inserted over the wire [facility] kmavis 01:52 AM Catheter crossed the aortic valve and was selectively placed in the left ventricle. Pressures recorded on pullback for left heart catheterization. kmavis 01:52 AM Recorded Pressure: LV, HR=93, Condition=Condition 1 (Left Ventricle) LV 97/8/13 01:53 AM Bolus angiogram of left Ventricle complete: 10 ml/sec for a total of 30 mls kmavis 01:53 AM Recorded Pressure: LV, Ao, HR=94, Condition=Condition 1 (Left Ventricle) LV 112/3/14, (Aorta) Ao 95/63/78 01:54 AM Time: 01:38 Patient comfortable and pain free: Yes kmavis 01:54 AM Time: 01:38LOC: 4 = Oriented but drowsy kmavis 01:54 AM HR=91 bpm, YKDD=173/60 mmhg, SpO2=96.0 %, Resp=10 B/min, Comment=sr 01:55 AM Conversation between Interventionalist and CT Surgeon. kmavis 01:55 AM backed and notified of case, he will see patient in the am kmavis 01:55 AM Catheter removed kmavis 01:56 AM Procedure completed at 01:56 04/09/2018 kmavis 01:56 AM Did you address ARMANDO flow and Dominance? Yes kmavis 01:58 AM Sign out completed: Radiation Dose 494 mGy, 4128 cGy/cm2 Fluoro Time: 7.3 Isovue 370 - 200ml contrast 100 ml given by John Mosqueda MD, [facility]. Complications: None. The patient was discharged out of the fish hatchery laborer in stable condition. Cardiac Rehab Consult needed: YesConfirmed administered medications: Yes kmavis 01:59 AM RICY=690/69 mmhg 02:02 AM PCI Status Urgent kmavis 02:02 AM Arterial sheath pulled, Vasc Band closure device used and was Successful S/N. kmavis 02:02 AM 7 ml air in Vasc Band. kmavis 02:03 AM Estimated Blood Loss: minimal kmavis 02:03 AM Post ECG NSR kmavis 02:03 AM Post Blood Pressure 107/69 kmavis 02:03 AM 02:03 Post Pulses Rt Radial 1+ kmavis 02:04 AM Information taught Cardiac Cath, PCI, and Vasc Band kmavis 02:04 AM Education needs Procedure, Plan of Care, and Responsibilities of Patient in Care kmavis 02:04 AM Learning barriers :None kmavis 02:04 AM Education Methods Verbal kmavis 02:04 AM Education evaluation Able to repeat information kmavis 02:04 AM Site status No bleeding/hematoma - Rt Wrist as reported by Laina Mckenzie RT (R) at 02:04 kmavis 02:04 AM Plavix, Effient or Brilinta given given in ED kmavis 02:04 AM Family placed in No family present at this time. kmavis 02:04 AM Complications: None kmavis 02:09 AM Time: 01:54LOC: 4 = Oriented but drowsy kmavis 02:09 AM Time: 01:54 Patient comfortable and pain free: Yes kmavis 02:12 AM Report given to Belkis ORTIZ Pt taken to ICU Room #12. 02:12 kmavis 02:14 AM Patient states that he is chest pain free at this time kmavis 02:16 AM Proximal Left Anterior Descending Coronary Artery with 85% stenosis. If graft is supplying this territory, 0 % stenosis. kmavis 02:16 AM Circumflex, Obtuse Marginal, Left Posterior Descending, and Left Posterolateral Coronary Arteries with 70 % stenosis. If graft is supplying this area, 0 % stenosis kmavis 02:16 AM Right Coronary, Right Posterior Descending Arteries with Right Posterolateral and Acute Marginal branches with 70 % stenosis. If graft is supplying this area, 0 % stenosis kmavis 02:16 AM Patient out of room: 02:16 kmavis Complications Complication None None Hemodynamics Pressures Site Systolic/A Wave Diastolic/V Wave Mean AO 104 81 92 AO 111 78 94 AO 111 77 94 AO 71 53 62 AO 74 -1 27 AO 87 70 79 AO 100 80 90 AO 97 70 82 LV 97 8 13 LV 112 3 14 AO 95 63 78 Post Procedure Information Blood Pressure: 107/69 mmHg Rhythm: NSR Post procedural instructions were given Closure Device Time Device Success/Fail 04/09/2018 2:00:00 AM Mechanical Compression Successful Site Checks Time Location Status Staff Sheath In? Note 02:04 AM Rt Wrist No bleeding/hematoma Laina Mckenzie RT (R) Pulses Time Site Pre-Procedure Post-Procedure Note 2:03:00 AM Rt Radial 1+ 04/09/2018 1:18:00 AM Rt Radial 1+ Updated by Nida Baltazar RN on 04/09/2018 2:20:16 AM electronically signed on 04/09/2018 2:21:34 AM with status of Final
[2018-04-09 03:39] LABS: Basophils % 0.1 %; Eosinophils % 0.2 %; Hematocrit 43.3 % (37.5-50.1); Hemoglobin 15.1 g/dL (12.9-16.9); Immature Granulocytes % 0.3 % (0-4); Immature Platelets 2.3 % (1.1-6.1); Lymphocytes # 1.5 K/mcL (0.6-4.6); Lymphocytes % 13.4 %; Mean Corpuscular HGB Conc 34.9 g/dL (31.6-35.5); Mean Corpuscular Hemoglobin 31.7 pg (28.0-33.3); Mean Corpuscular Volume 90.8 fL (83.0-100.0); Mean Platelet Volume 9.6 fL (9.4-12.4); Monocytes # 0.4 K/mcL (0.0-1.3); Monocytes % 3.3 %; Neutrophils # 9.5 K/mcL (1.6-8.9); Platelet Count 214 K/mcL (140-400); Red Blood Count 4.77 M/mcL (4.19-5.50); Red Cell Distribution Width 13.9 % (11.5-14.5); Segmented Neutrophils % 82.7 %
[2018-04-09 03:58] LABS: BUN/Creatinine Ratio 13 (6-26); Blood Urea Nitrogen 12 mg/dL (6-20); Calcium 9.2 mg/dL (8.6-10.3); Carbon Dioxide 25 mEq/L (23-29); Chloride 109 mEq/L (98-107); Glucose 117 mg/dL (70-105); Osmolality,Calculated 285 (280-300); Potassium 4.2 mEq/L (3.5-5.1); Sodium 137 mEq/L (136-145); eGFR For Non-African Americans > 60 (> 60)
[2018-04-09] MEDS ORDERED: *HR* Buprenorphine HCl 8 MG TAB.SUBL SL SCH (07:00)
[2018-04-09 08:32] VITALS: BP 128/87
[2018-04-09] MEDS ORDERED: *HR* Ticagrelor 90 MG TABLET PO SCH (09:00)
[2018-04-09] MEDS ORDERED: amLODIPine 5 MG TABLET PO SCH (09:00)
[2018-04-09] MEDS ORDERED: Aspirin Enteric Coated 81 MG Tablet PO SCH (09:00)
[2018-04-09] MEDS ORDERED: Aspirin 81 MG TAB.CHEW PO SCH (09:00)
--- NOTE | 2018-04-09 09:25 | Event Note ---
Addendum entered and electronically signed by Connor Goncalves MD 04/09/18 11:40: Patient with severe triple-vessel coronary artery disease had received Ticagrelor prior to cath. He was threatening to leave AGAINST MEDICAL ADVICE his morning I had an extensive discussion with him explaining the severity of his heart condition and the need to remain in the hospital for optimal treatments which in this case would entail bypass surgery. He expressed understanding and decided to stay. Discussed with Dr. Wells and . Addendum entered and electronically signed by Ayala Brock CNP 04/09/18 09:27: Dr. Goncalves discussed patient, [facility] findings with Dr. Wells who will see early this AM. Original Note: Date of Encounter: 04/09/18 Time of Encounter: 08:30 - Cardiology Event Note Paged by primary RN due to patient threatening to leave AMA. Long discussion with patient on multiple occasions this morning--he wants to leave AMA to smoke. He is also frustrated that CABG was not completed overnight. He reports he is chest pain free upon exam. Long discussion with patient, with , regarding plan of care and explanation of diagnosis--multi-vessel CAD, STEMI. He is willing to stay and discuss plan with CT Surgery, consult placed by Dr. Mosqueda. Dr. Wells paged. He is aware of risk of , recurrent IA with leaving AMA.
[2018-04-09] MEDS ORDERED: Nicotine 2 MG GUM BC PRN (09:26)
[2018-04-09] MEDS ORDERED: Budesonide/Formoterol 160/4.5 1 PUFF INH IH SCH (10:00)
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
[2018-04-09 11:21] LABS: Chol/HDL Ratio 4.3 (0-4.9)
[2018-04-09 11:52] LABS: Estimated Average Glucose 111 mg/dl; Hemoglobin A1C 5.5 %
--- NOTE | 2018-04-09 14:17 | Event Note ---
Date of Encounter: 04/09/18 Time of Encounter: 14:15 - Cardiology Event Note Received page at 2:13 PM from bedside RN that patient left AMA. He refused to stay to further discuss with Cardiology or CT surgery. Please see event note from earlier--patient aware he is at risk of sudden cardiac leaving AMA in the setting of AMI.
[2018-04-09] MEDS ORDERED: *HR* Buprenorphine HCl 2 MG SUBLINGUAL TABLET SL SCH (21:00)
[2018-04-14] MEDS ORDERED: Chlorhexidine Rinse 15 ML MOUTHWASH MM SCH (21:00)
[2018-04-15] MEDS ORDERED: Clindamycin 900 MG/50 ML 900 MG/50 ML IV.SOLN IVPB ONE (07:00)
== END 2018-04-09 13:30 | disposition left against medical advice (07) | DRG 249 ==
LOC: EMEROOARM 00:17 → ICNU 01:15
PROVIDERS: ADMIT Emergency Medicine; ATTEND Emergency Medicine